=== PATIENT | female | born 2000 | race Caucasian/White ===

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

== ENCOUNTER 2019-12-14 07:02 | Emergency (ER) | payer OTHER, SELFPAY ==
[2019-12-14] VITALS (9 sets, daily range): BP systolic 114–138; BP diastolic 83–96; PULSE 86–105; RESP 16–18; TEMP 37.1; O2SAT 98–100; BMI 33.5
[2019-12-14 07:50] LABS: Absolute Neutrophil Count 1.7 X10^3/uL (2.0-7.7); Basophil# 0.02 X10^3/uL; Basophil% 0.5 % (0-1); Eosinophil# 0.25 X10^3/uL; Eosinophils% 5.9 % (0-5); Hematocrit 40.3 % (37-47); Lymphocyte % 45.1 % (19-41); Mean Corp Hgb Conc 32.3 g/dL (32-36); Mean Corpuscular Volume 86.7 fL (81-99); Monocyte# 0.36 X10^3/uL; Monocyte% 8.6 % (0-10); NRBC Flagged by Analyzer 0 % (0-5); Neutrophil # 1.67 X10^3/uL (2.7-7.7); Neutrophil % 39.7 % (47-70); Platelet Count 204 K/mm3 (150-450); RBC Distribution Width CV 12.5 % (11.6-14.6); RBC Distribution Width SD 39.1 fl (35.1-43.9); Red Blood Count 4.65 M/mm3 (4.2-5.4); White Blood Count 4.2 K/mm3 (4.4-11.0)
--- NOTE | 2019-12-14 07:54 | ED.VISSUMM ---
- ER Visit Summary Date of Service: 12/14/19 Chief Complaint: Depression and suicidal ideation History of Present Illness: The patient is a 19 F who presents with depression and suicidal ideation that became worse last night. Patient states she has been having some depression over the past 6 months. Patient states her depression has been constant but waxes and wanes. Patient states she sees a counselor here in [place]. Patient states she was started on antidepressants but states that made her depression worse. Patient states she has been feeling hopeless. Patient states she was having suicidal thoughts last night taking pills. Patient states her boyfriend was there and was able to talk to her and keep her from taking pills. Patient wants help. Physical Examination: Vital signs are stable. Patient is afebrile. Patient is in no acute distress. Oral mucosa is pink and moist. Neck is supple. Trachea is midline. There is no JVD noted. Heart was regular rate and rhythm. Lungs are clear and equal bilaterally. Abdomen is soft. Bowel sounds are normal. There is no tenderness. There is no rebound or guarding noted. Skin is warm dry. Cranial nerves II through XII are intact. There are no focal motor or sensory deficits noted. Extremities are intact. There is no calf tenderness or edema. Patient does have a depressed mood and a flat affect. Patient admits to suicidal thoughts of taking pills. Test Results: CBC, basic metabolic profile, urinalysis, serum hCG, urine tox screen, and serum alcohol level were obtained and were all within normal limits. Emergency Department Course and Treatment: Patient is medically cleared. Patient was evaluated by social work. Patient is agreeable to inpatient psychiatric care. Patient will be placed in an inpatient psychiatric facility. Disposition: Transfer to psychiatric facility Impression: Depression with suicidal ideation This note was generated with [employer] dictation software. It may contain incorrect words, spelling, and punctuation that were not noted in review of the chart prior to signing ED Disposition - Plan for ED Patient: Referrals: Care Physician,No Primary [Primary Care Provider] -
[2019-12-14 07:57] LABS: Internal QC Validated? YES +Cl - CLEAR BKGD; Pregnancy, Serum, hCG Quali. NEGATIVE Negative
[2019-12-14 08:02] LABS: Anion Gap 6 (5-15); BUN 7 mg/dL (7-18); BUN/Creat Ratio 8.5 RATIO (10-20); Calcium,Total 9.3 mg/dL (8.5-10.1); Chloride 107 mmol/L (98-107); Creatinine, Serum 0.82 mg/dL (0.55-1.02); EST Glomerular Filtration Rate 94 mL/min (>60); Est Glom Filt Rate - Afr Amer 114 mL/min (>60); Glucose 99 mg/dL (74-106); Potassium 3.4 mmol/L (3.5-5.1); Sodium Level 140 mmol/L (136-145)
[2019-12-14 08:07] LABS: Amphetamine Urine VISTA NEGATIVE (<1000 ng/mL); Barbiturate Urine VISTA NEGATIVE (< 200 ng/mL); Benzodiazepine Urine VISTA NEGATIVE (< 200 ng/mL); Cocaine Urine VISTA NEGATIVE (< 300 ng/mL); Ecstacy Urine VISTA NEGATIVE (< 500 ng/mL); Methadone Urine VISTA NEGATIVE (< 300 ng/mL); PCP Urine VISTA NEGATIVE (< 25 ng/mL); THC Urine VISTA NEGATIVE (< 50 ng/mL); Vista UDS pH Range 6
[2019-12-14 08:39] LABS: Alcohol, Blood (Medical)-Serum < 3.0 mg/dL
--- NOTE | 2019-12-14 10:03 | NURSING ---
[place], CRISIS, CALLED BACK. CHARGE NURSE TALKING TO HIM
--- NOTE | 2019-12-14 10:03 | NURSING ---
PCU HEART FAILURE, ELEVATED TROPS, [facility]F [facility]
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
--- NOTE | 2019-12-14 13:44 | CM.ED ---
SOCIAL WORK REFERRAL CALLED AND FAXED TO [facility]. AWAITING ACCEPTANCE AT THIS TIME. Leonardo COHEN, RADIO MECHANIC HELPER, PRESSURE CONTROLLER.
--- NOTE | 2019-12-14 14:18 | CM.ED ---
SOCIAL WORK CALL FROM [facility] [place] WITH [facility]. PATIENT ACCEPTED BY DR. WALDROP TO THE [facility] UNIT. NURSE TO CALL REPORT TO . STAFF AND PATIENT UPDATED. PAPER COATING MACHINE OPERATOR TO SET UP TRANSPORT. Leonardo COHEN, CELLOPHANE TESTER, LINUX SERVER ADMINISTRATOR.
--- NOTE | 2019-12-14 14:29 | NURSING ---
Called report to Zoe Izquierdo, frederick w/ Diane COATES; will call back when we know an ETA
== END 2019-12-14 15:04 ==
PROVIDERS: Emergency Provider Emergency Medicine
DX: F32.9 Major depressive disorder, single episode, unspecified (principal); R45.851 Suicidal ideations
CPT/HCPCS: 36415; 80048; 80307; 80320; 84703; 85025; 99283; G0480